=== PATIENT | male | born 1965 | race Asian ===

== ENCOUNTER 2018-01-07 14:24 | Emergency (ER) | payer SELFPAY, OTHER, MEDICARE | END 2018-01-07 14:27 | disposition left against medical advice (07) | LOC: FTE 14:27 | DX: Z53.21 Procedure and treatment not carried out due to patient leaving prior to being seen by health care provider (principal) ==

== ENCOUNTER 2019-03-12 09:07 | Inpatient (IN) | payer MEDICARE, OTHER ==
[2019-03-12 10:02] LABS: ADD MAN DIFF? NO
[2019-03-12] MEDS: IPRATROPIUM (NEB) 0.5 MG/2.5 ML AMP HHN (10:03)
[2019-03-12] MEDS: ALBUTEROL 0.083% (NEB) 2.5 MG/3 ML AMP HHN (10:03)
[2019-03-12 10:05] LABS: BASOPHIL # 0.1 10^3/ul (0.0-0.1); BASOPHILS % 0.4 % (0.0-2.0); EOSINOPHILS % 0.1 % (0.0-7.0); HEMOGLOBIN 15.2 g/dl (14.0-18.0); LYMPHOCYTES # 0.8 10^3/ul (0.8-2.9); LYMPHOCYTES % 4.6 % (15.0-51.0); MEAN CORPUSCULAR HEMOGLOBIN 30.8 pg (29.0-33.0); MEAN CORPUSCULAR HGB CONC 34.5 g/dl (32.0-37.0); MEAN CORPUSCULAR VOLUME 89.1 fl (82.0-101.0); MEAN PLATELET VOLUME 9.8 fl (7.4-10.4); MONOCYTE # 0.7 10^3/ul (0.3-0.9); MONOCYTES % 4.5 % (0.0-11.0); NEUTROPHIL # 14.8 10^3/ul (1.6-7.5); NEUTROPHILS % 89.9 % (39.0-77.0); PLATELET COUNT 249 10^3/UL (140-415); RED BLOOD COUNT 4.94 10^6/ul (4.70-6.10); RED CELL DISTRIBUTION WIDTH 13.1 % (11.5-14.5)
[2019-03-12 10:05] LABS: WHITE BLOOD COUNT 16.4 10^3/ul (4.8-10.8)
[2019-03-12] MEDS: ACETAMINOPHEN 500 MG TAB PO (10:12)
[2019-03-12] MEDS: KETOROLAC 30 MG INJ IV (10:12)
[2019-03-12] MEDS: CEFTRIAXONE 1 GM/50 ML (PMX) 50 ML IVPB (10:12)
[2019-03-12] MEDS: SODIUM CHLORIDE 0.9% 1L BAG IV* (10:13)
[2019-03-12 10:30] LABS: ALANINE AMINOTRANSFERASE 21 IU/L (13-69); ALBUMIN 4.9 g/dl (3.3-4.9); ALBUMIN/GLOBULIN RATIO 1.28; ALKALINE PHOSPHATASE 59 IU/L (42-121); ANION GAP 12 (5-13); ASPARTATE AMINO TRANSFERASE 26 IU/L (15-46); BILIRUBIN,INDIRECT 1.8 mg/dl (0-1.1); BILIRUBIN,TOTAL 1.8 mg/dl (0.2-1.3); BLOOD UREA NITROGEN 18 mg/dl (7-20); CALCIUM 9.5 mg/dl (8.4-10.2); CARBON DIOXIDE 24 mmol/L (21-31); CHLORIDE 105 mmol/L (97-110); CREATININE 0.95 mg/dl (0.61-1.24); Estimated GFR > 60 mL/min (>60); GLUCOSE 155 mg/dl (70-220); POTASSIUM 4.2 mmol/L (3.5-5.1); SODIUM 141 mmol/L (135-144); TOTAL PROTEIN 8.7 g/dl (6.1-8.1)
[2019-03-12 10:39] LABS: INR 0.91; PROTIME 12.4 Sec (11.9-14.9)
[2019-03-12 10:40] LABS: PARTIAL THROMBOPLASTIN TIME 35.9 Sec (23.0-35.0)
[2019-03-12] MEDS: METHYLPRED. NA SUCC 250 MG in DEXTROSE 5% 50 ML IV (10:42)
[2019-03-12 10:54] LABS: TROPONIN-I < 0.012 ng/ml (0.000-0.120)
[2019-03-12 10:59] LABS: ADD UMIC YES; UR ASCORBIC ACID NEGATIVE (NEGATIVE); UR BILIRUBIN (Dip) NEGATIVE (NEGATIVE); UR BLOOD (Dip) 1+ mg/dL (NEGATIVE); UR CLARITY SLIGHTLY CLOUDY (CLEAR); UR COLOR YELLOW (YELLOW); UR GLUCOSE (Dip) NEGATIVE (NEGATIVE); UR KETONES (Dip) NEGATIVE (NEGATIVE); UR LEUKOCYTE ESTERASE (Dip) NEGATIVE Leu/ul (NEGATIVE); UR MUCUS MANY /HPF (NONE SEEN); UR NITRITE (Dip) NEGATIVE (NEGATIVE); UR RBC 3 /HPF (0-5); UR SPECIFIC GRAVITY (Dip) 1.027 (1.003-1.030); UR TOTAL PROTEIN (Dip) 2+ mg/dl (NEGATIVE); UR UROBILINOGEN (Dip) NEGATIVE (NEGATIVE); UR WBC 2 /HPF (0-5)
[2019-03-12] MEDS ORDERED: ONDANSETRON 4 MG INJ IV (15:30)
[2019-03-12] MEDS: ALBUTEROL/IPRATROPIUM (NEB) 3 ML AMP HHN ×3 (17:36→22:20)
[2019-03-12] MEDS: BUDESONIDE (NEB) 0.5MG/2ML AMP HHN (17:48)
[2019-03-12 18:21] LABS: LACTIC ACID 5.5 mmol/L (0.5-2.0)
[2019-03-12] MEDS: ACETAMINOPHEN 325 MG TAB PO (20:07)
[2019-03-12] MEDS ORDERED: ALBUTEROL/IPRATROPIUM (NEB) 3 ML AMP HHN (21:00)
[2019-03-12] MEDS: CEPASTAT LOZENGE MT (21:38)
[2019-03-12] MEDS: AMLODIPINE 10 MG TAB PO (21:38)
[2019-03-12] MEDS: GUAIFENESIN/CODEINE 5ML CUP PO (21:39)
[2019-03-12 22:02] LABS: LACTIC ACID 4.6 mmol/L (0.5-2.0)
[2019-03-12] MEDS: POTASSIUM CHLORIDE 10 MEQ in SOD CHLORIDE 0.9% 1,000 ML IV (23:44)
[2019-03-12] MEDS: AZITHROMYCIN 500 MG in SOD CHLORIDE 0.9% 250 ML IVPB (23:44)
[2019-03-12] MEDS: LATANOPROST 0.005% 2.5 ML OPH BOTH EYES (23:45)
[2019-03-13] MEDS: ALBUTEROL/IPRATROPIUM (NEB) 3 ML AMP HHN ×6 (01:23→20:14)
[2019-03-13 05:38] LABS: ADD MAN DIFF? NO
[2019-03-13 05:41] LABS: BASOPHILS % 0.1 % (0.0-2.0); HEMATOCRIT 39.1 % (42.0-52.0); HEMOGLOBIN 13.4 g/dl (14.0-18.0); LYMPHOCYTES # 1.1 10^3/ul (0.8-2.9); MEAN CORPUSCULAR HEMOGLOBIN 30.7 pg (29.0-33.0); MEAN CORPUSCULAR HGB CONC 34.3 g/dl (32.0-37.0); MEAN CORPUSCULAR VOLUME 89.5 fl (82.0-101.0); MONOCYTE # 0.7 10^3/ul (0.3-0.9); MONOCYTES % 4.9 % (0.0-11.0); NEUTROPHIL # 12.1 10^3/ul (1.6-7.5); NEUTROPHILS % 86.2 % (39.0-77.0); PLATELET COUNT 223 10^3/UL (140-415); RED BLOOD COUNT 4.37 10^6/ul (4.70-6.10); RED CELL DISTRIBUTION WIDTH 13.7 % (11.5-14.5)
[2019-03-13 06:13] LABS: ALANINE AMINOTRANSFERASE 25 IU/L (13-69); ALBUMIN/GLOBULIN RATIO 1.17; ALKALINE PHOSPHATASE 45 IU/L (42-121); ANION GAP 11 (5-13); ASPARTATE AMINO TRANSFERASE 29 IU/L (15-46); BILIRUBIN,INDIRECT 0.9 mg/dl (0-1.1); BILIRUBIN,TOTAL 0.9 mg/dl (0.2-1.3); BLOOD UREA NITROGEN 16 mg/dl (7-20); CALCIUM 8.7 mg/dl (8.4-10.2); CARBON DIOXIDE 23 mmol/L (21-31); CHLORIDE 109 mmol/L (97-110); CREATINE KINASE 553 IU/L (23-200); CREATININE 0.83 mg/dl (0.61-1.24); Estimated GFR > 60 mL/min (>60); GLUCOSE 144 mg/dl (70-220); SODIUM 143 mmol/L (135-144); TOTAL PROTEIN 7.4 g/dl (6.1-8.1)
[2019-03-13] MEDS: POTASSIUM CHLORIDE 10 MEQ in SOD CHLORIDE 0.9% 1,000 ML IV ×3 (08:03→20:48)
[2019-03-13] MEDS: ALLOPURINOL 300 MG TAB PO (08:31)
[2019-03-13] MEDS: AMLODIPINE 10 MG TAB PO (08:31)
[2019-03-13] MEDS: CEFTRIAXONE 1 GM/50 ML (PMX) 50 ML IVPB (08:31)
[2019-03-13] MEDS: LISINOPRIL 10 MG TAB PO (08:31)
[2019-03-13] MEDS: ENOXAPARIN 40 MG/0.4 ML SYG SC (08:45)
[2019-03-13] MEDS: FLUTICASONE/VILANTEROL 100-25 INH (11:56)
[2019-03-13] MEDS: METHYLPREDNISOLONE 40 MG INJ IV ×2 (13:40→17:47)
[2019-03-13] MEDS: COLCHICINE 0.6 MG TAB PO (17:47)
[2019-03-13] MEDS: LATANOPROST 0.005% 2.5 ML OPH BOTH EYES (20:38)
[2019-03-14] MEDS: METHYLPREDNISOLONE 40 MG INJ IV ×4 (00:03→17:03)
[2019-03-14] MEDS: ALBUTEROL/IPRATROPIUM (NEB) 3 ML AMP HHN ×6 (00:26→20:27)
[2019-03-14 05:37] LABS: ADD MAN DIFF? NO
[2019-03-14 05:45] LABS: WHITE BLOOD COUNT 16.2 10^3/ul (4.8-10.8)
[2019-03-14 05:45] LABS: BASOPHILS % 0.1 % (0.0-2.0); HEMATOCRIT 40.9 % (42.0-52.0); HEMOGLOBIN 13.7 g/dl (14.0-18.0); LYMPHOCYTES # 0.9 10^3/ul (0.8-2.9); LYMPHOCYTES % 5.6 % (15.0-51.0); MEAN CORPUSCULAR HEMOGLOBIN 30.2 pg (29.0-33.0); MEAN CORPUSCULAR HGB CONC 33.5 g/dl (32.0-37.0); MEAN CORPUSCULAR VOLUME 90.3 fl (82.0-101.0); MEAN PLATELET VOLUME 10.3 fl (7.4-10.4); MONOCYTE # 0.7 10^3/ul (0.3-0.9); NEUTROPHIL # 14.6 10^3/ul (1.6-7.5); NEUTROPHILS % 89.7 % (39.0-77.0); PLATELET COUNT 242 10^3/UL (140-415); RED BLOOD COUNT 4.53 10^6/ul (4.70-6.10); RED CELL DISTRIBUTION WIDTH 13.9 % (11.5-14.5)
[2019-03-14 06:00] LABS: ANION GAP 11 (5-13); BLOOD UREA NITROGEN 17 mg/dl (7-20); CALCIUM 8.7 mg/dl (8.4-10.2); CARBON DIOXIDE 22 mmol/L (21-31); CHLORIDE 108 mmol/L (97-110); CREATINE KINASE 688 IU/L (23-200); CREATININE 0.82 mg/dl (0.61-1.24); Estimated GFR > 60 mL/min (>60); GLUCOSE 147 mg/dl (70-220); POTASSIUM 4.1 mmol/L (3.5-5.1); SODIUM 141 mmol/L (135-144)
[2019-03-14 06:06] LABS: MAGNESIUM 2.1 mg/dl (1.7-2.5)
[2019-03-14 06:27] LABS: THYROID STIMULATING HORMONE 0.875 MIU/L (0.465-4.680)
[2019-03-14] MEDS: POTASSIUM CHLORIDE 10 MEQ in SOD CHLORIDE 0.9% 1,000 ML IV ×2 (06:36→17:41)
[2019-03-14] MEDS: ALLOPURINOL 300 MG TAB PO (08:00)
[2019-03-14] MEDS: FLUTICASONE/VILANTEROL 100-25 INH (08:00)
[2019-03-14] MEDS: LISINOPRIL 10 MG TAB PO (08:00)
[2019-03-14] MEDS: AMLODIPINE 10 MG TAB PO (08:00)
[2019-03-14] MEDS: CEFTRIAXONE 1 GM/50 ML (PMX) 50 ML IVPB (08:00)
[2019-03-14] MEDS: ENOXAPARIN 40 MG/0.4 ML SYG SC (08:16)
[2019-03-14 15:42] LABS: PROCALCITONIN 0.11 ng/mL (0.00-0.10)
[2019-03-14] MEDS: ACETAMINOPHEN 325 MG TAB PO (19:59)
[2019-03-14] MEDS: LATANOPROST 0.005% 2.5 ML OPH BOTH EYES (20:54)
[2019-03-15] MEDS: METHYLPREDNISOLONE 40 MG INJ IV ×4 (00:08→17:06)
[2019-03-15] MEDS: ALBUTEROL/IPRATROPIUM (NEB) 3 ML AMP HHN ×6 (01:04→20:56)
[2019-03-15] MEDS: POTASSIUM CHLORIDE 10 MEQ in SOD CHLORIDE 0.9% 1,000 ML IV ×2 (03:36→06:09)
[2019-03-15 06:00] LABS: ADD MAN DIFF? NO
[2019-03-15 06:11] LABS: HEMOGLOBIN 13.3 g/dl (14.0-18.0); LYMPHOCYTES # 0.7 10^3/ul (0.8-2.9); LYMPHOCYTES % 4.8 % (15.0-51.0); MEAN CORPUSCULAR HEMOGLOBIN 30.3 pg (29.0-33.0); MEAN CORPUSCULAR HGB CONC 33.3 g/dl (32.0-37.0); MEAN CORPUSCULAR VOLUME 91.1 fl (82.0-101.0); MEAN PLATELET VOLUME 10.3 fl (7.4-10.4); MONOCYTE # 0.5 10^3/ul (0.3-0.9); MONOCYTES % 3.9 % (0.0-11.0); NEUTROPHIL # 12.2 10^3/ul (1.6-7.5); NEUTROPHILS % 89.8 % (39.0-77.0); PLATELET COUNT 256 10^3/UL (140-415); RED BLOOD COUNT 4.39 10^6/ul (4.70-6.10); RED CELL DISTRIBUTION WIDTH 13.6 % (11.5-14.5)
[2019-03-15 06:11] LABS: WHITE BLOOD COUNT 13.6 10^3/ul (4.8-10.8)
[2019-03-15 06:51] LABS: ANION GAP 9 (5-13); BLOOD UREA NITROGEN 16 mg/dl (7-20); CALCIUM 8.5 mg/dl (8.4-10.2); CARBON DIOXIDE 24 mmol/L (21-31); CHLORIDE 106 mmol/L (97-110); CREATININE 0.86 mg/dl (0.61-1.24); Estimated GFR > 60 mL/min (>60); GLUCOSE 147 mg/dl (70-220); MAGNESIUM 2.3 mg/dl (1.7-2.5); PHOSPHORUS 4.2 mg/dl (2.5-4.9); POTASSIUM 4.1 mmol/L (3.5-5.1); SODIUM 139 mmol/L (135-144)
[2019-03-15] MEDS: FLUTICASONE/VILANTEROL 100-25 INH (08:15)
[2019-03-15] MEDS: LISINOPRIL 10 MG TAB PO (08:15)
[2019-03-15] MEDS: AMLODIPINE 10 MG TAB PO (08:15)
[2019-03-15] MEDS: ALLOPURINOL 300 MG TAB PO (08:15)
[2019-03-15] MEDS: CEFTRIAXONE 1 GM/50 ML (PMX) 50 ML IVPB (08:15)
[2019-03-15] MEDS: ENOXAPARIN 40 MG/0.4 ML SYG SC (08:19)
[2019-03-15] MEDS: LATANOPROST 0.005% 2.5 ML OPH BOTH EYES (20:34)
[2019-03-16] MEDS: METHYLPREDNISOLONE 40 MG INJ IV ×5 (00:23→23:56)
[2019-03-16] MEDS: ALBUTEROL/IPRATROPIUM (NEB) 3 ML AMP HHN ×6 (01:44→21:01)
[2019-03-16 05:20] LABS: ADD MAN DIFF? NO
[2019-03-16 05:37] LABS: BASOPHILS % 0.3 % (0.0-2.0); HEMATOCRIT 44.7 % (42.0-52.0); LYMPHOCYTES % 7.5 % (15.0-51.0); MEAN CORPUSCULAR HEMOGLOBIN 30.5 pg (29.0-33.0); MEAN CORPUSCULAR HGB CONC 33.6 g/dl (32.0-37.0); MEAN PLATELET VOLUME 10.1 fl (7.4-10.4); MONOCYTE # 0.5 10^3/ul (0.3-0.9); MONOCYTES % 4.2 % (0.0-11.0); NEUTROPHIL # 11.2 10^3/ul (1.6-7.5); NEUTROPHILS % 86.2 % (39.0-77.0); PLATELET COUNT 285 10^3/UL (140-415); RED BLOOD COUNT 4.91 10^6/ul (4.70-6.10); RED CELL DISTRIBUTION WIDTH 13.1 % (11.5-14.5)
[2019-03-16 05:58] LABS: ANION GAP 11 (5-13); BLOOD UREA NITROGEN 19 mg/dl (7-20); CALCIUM 8.8 mg/dl (8.4-10.2); CARBON DIOXIDE 29 mmol/L (21-31); CHLORIDE 100 mmol/L (97-110); CREATINE KINASE 332 IU/L (23-200); CREATININE 0.81 mg/dl (0.61-1.24); Estimated GFR > 60 mL/min (>60); GLUCOSE 141 mg/dl (70-220); POTASSIUM 4.3 mmol/L (3.5-5.1); SODIUM 140 mmol/L (135-144)
[2019-03-16] MEDS: ALLOPURINOL 300 MG TAB PO (08:45)
[2019-03-16] MEDS: LISINOPRIL 10 MG TAB PO (08:45)
[2019-03-16] MEDS: AMLODIPINE 10 MG TAB PO (08:45)
[2019-03-16] MEDS: CEFTRIAXONE 1 GM/50 ML (PMX) 50 ML IVPB (08:46)
[2019-03-16] MEDS: FLUTICASONE/VILANTEROL 100-25 INH (08:46)
[2019-03-16] MEDS: ENOXAPARIN 40 MG/0.4 ML SYG SC (09:03)
[2019-03-16] MEDS: LATANOPROST 0.005% 2.5 ML OPH BOTH EYES (21:41)
[2019-03-17] MEDS: ALBUTEROL/IPRATROPIUM (NEB) 3 ML AMP HHN ×4 (00:03→13:00)
[2019-03-17] MEDS: LEVOFLOXACIN 500 MG TAB PO (05:40)
[2019-03-17] MEDS: METHYLPREDNISOLONE 40 MG INJ IV ×2 (05:40→11:57)
[2019-03-17 06:01] LABS: ADD MAN DIFF? NO
[2019-03-17 06:14] LABS: WHITE BLOOD COUNT 12.4 10^3/ul (4.8-10.8)
[2019-03-17 06:14] LABS: BASOPHILS % 0.2 % (0.0-2.0); HEMATOCRIT 44.4 % (42.0-52.0); HEMOGLOBIN 15.1 g/dl (14.0-18.0); LYMPHOCYTES % 8.1 % (15.0-51.0); MEAN CORPUSCULAR HEMOGLOBIN 30.3 pg (29.0-33.0); MEAN PLATELET VOLUME 9.9 fl (7.4-10.4); MONOCYTE # 0.8 10^3/ul (0.3-0.9); MONOCYTES % 6.3 % (0.0-11.0); NEUTROPHIL # 10.3 10^3/ul (1.6-7.5); NEUTROPHILS % 83.2 % (39.0-77.0); NUCLEATED RED BLOOD CELLS% 0.2 /100WBC (0.0-0.0); PLATELET COUNT 300 10^3/UL (140-415); RED BLOOD COUNT 4.99 10^6/ul (4.70-6.10); RED CELL DISTRIBUTION WIDTH 12.8 % (11.5-14.5)
[2019-03-17 07:02] LABS: ANION GAP 10 (5-13); BLOOD UREA NITROGEN 19 mg/dl (7-20); CALCIUM 8.7 mg/dl (8.4-10.2); CARBON DIOXIDE 28 mmol/L (21-31); CHLORIDE 101 mmol/L (97-110); CREATININE 0.84 mg/dl (0.61-1.24); Estimated GFR > 60 mL/min (>60); GLUCOSE 147 mg/dl (70-220); SODIUM 139 mmol/L (135-144)
[2019-03-17] MEDS: FLUTICASONE/VILANTEROL 100-25 INH (09:15)
[2019-03-17] MEDS: AMLODIPINE 10 MG TAB PO (09:16)
[2019-03-17] MEDS: LISINOPRIL 10 MG TAB PO (09:16)
[2019-03-17] MEDS: ALLOPURINOL 300 MG TAB PO (09:16)
[2019-03-17] MEDS: ENOXAPARIN 40 MG/0.4 ML SYG SC (09:26)
== END 2019-03-17 15:07 | disposition home or self-care (01) | DRG 202 ==
LOC: FTE 09:07 → 6WM 15:27
PROVIDERS: Internal Medicine
DX: J45.901 Unspecified asthma with (acute) exacerbation (principal); J96.01 Acute respiratory failure with hypoxia; E87.2 Acidosis; I47.1 Supraventricular tachycardia; J20.9 Acute bronchitis, unspecified; M10.9 Gout, unspecified; I10 Essential (primary) hypertension; R74.8 Abnormal levels of other serum enzymes; M79.10 Myalgia, unspecified site; H40.9 Unspecified glaucoma; E11.9 Type 2 diabetes mellitus without complications
CPT/HCPCS: 36415; 71045; 80048; 80053; 81001; 82085; 82550; 83605; 83735; 84100; 84145; 84443; 84484; 85025; 85610; 85730; 87040-91; 87070; 87086; 87400; 93005; 93306; 94640; 94644; 94664; 96365; 96375; 99285-25